=== PATIENT | female | born 1945 | race African-American/Black ===

== ENCOUNTER 2020-07-19 14:39 | Emergency (ER) | payer OTHER ==
[~2020-07-19] VITALS: Ht 175.3 cm; Wt 93.9 kg
[~2020-07-19 14:39] MED LIST: AZITHROMYCIN 2250 MG PO; DYRENIUM100 MG PO; LISINOPRIL20 MG PO; NORCO 5-325 TA1 EACH PO; PHENERGAN 25 MG25 M1 PO; SYMBICORT160 MCG/4. INH
[2020-07-19 16:33] VITALS: BP 159/83
== END 2020-07-19 16:33 | disposition home or self-care (01) ==
LOC: ER 14:39
DX: H11.31 Conjunctival hemorrhage, right eye (principal); I10 Essential (primary) hypertension; M10.9 Gout, unspecified; Z88.0 Allergy status to penicillin; Z79.2 Long term (current) use of antibiotics; Z79.899 Other long term (current) drug therapy; W01.0XXA Fall on same level from slipping, tripping and stumbling without subsequent striking against object, initial encounter; Y93.89 Activity, other specified; Y92.89 Other specified places as the place of occurrence of the external cause; Y99.8 Other external cause status